=== PATIENT | male | born 1950 | race Caucasian/White ===

== ENCOUNTER 2024-09-25 13:17 | Emergency (ER) | payer SELFPAY ==
--- NOTE | 2024-09-25 14:17 | ED.GENMED ---
Addendum entered and electronically signed by Angelo Dunlap MD 09/26/24 09:57:
Addendum: Patient at 1320 on 09/25/2024. Code called at that time
Original Note:
History of Present Illness
General
Chief Complaint: CODE
Source: ambulance crew
Exam Limitations: none
Time Seen by Provider: 09/25/24 13:28
History of Present Illness
History of Present Illness:
74-year-old male came in as a cardiac arrest. Apparently [place] walking around the [place] collapsed witnessed. CPR was started by bystanders. Initially had 2 shocks delivered then went into asystole and continuous PEA for an hour. 7 rounds of
epinephrine. Intubated by the medics. On arrival pulseless PEA equal breath sounds with bagging. No other history available
Past History
Past History
ED Past Medical History: Other (Unknown)
ED Past Surgical History: Other (Unknown)
Phy Exam
Physical Exam
Physical Exam:
CODE EXAM:
VITAL SIGNS: No palpable blood pressure, no pulses, no respiration.
GENERAL EXAM: Mottled
EYES: Pupils fixed
ENT: Patient intubated
NECK: No venous distention
RESPIRATORY: Equal breath sounds
CARDIAC: Absent heart sounds
VASCULAR: Absent pulses
ABDOMEN: Soft no masses. Obese
GUAIAC: Not done
MUSCULOSKELETAL: Unable to evaluate strength
EXTREMITIES: No edema or contractures
SKIN: No rash
PSYCH: Mood, affect unable to evaluate
MDM/Problems Addressed
Differential Diagnosis Includes:
Patient with 1 hour of advanced life support 7 rounds of epinephrine. No neurologic exam. Idioventricular rhythm. No pulse palpable. There was a trace Doppler for seconds after the previous epi. However this quickly digressed and no pulse.
Code was called. Attempted to contact family.
*Complex Care Nurse Interpretation
Rate: bradycardiac
Interpretation: abnormal
Heart Rate: 30
Rhythm: other (Idioventricular)
*Critical Care Note
Total Time (30-74mins, 75-104mins- exclusive of procedures): 15
Update Note
Update Note:
Family contacted including brother who is a physician and daughter. Daughter is coming in to see the patient. Cleared by the verify rep. Tube removed.
ED Attending Note
-
Portions of this chart may have been created with voice recognition software.� Occasional wrong word or��sound alike� substitutions may have occurred due to the inherent limitations of voice recognition software.
Discharge Plan
Departure
Patient Disposition:
Date of Disposition: 09/25/24
Time of Disposition: 14:20
Discharge Problem:
Cardiopulmonary arrest
Referrals:
UNKNOWN,NO INTERVIEW [Family Provider] -
Interventions
Interventions:
*Risk Screen - Suicide Last Done: 09/25/24 13:18
*General Assessment Last Done: 09/25/24 13:18
*Neglect/Abuse Screening Last Done: 09/25/24 13:18
*ED COVID-19 Vaccine History Last Done: 09/25/24 13:18
Discharge Date and Time
Print Language: AUSTR[place]
== END 2024-09-25 13:20 | disposition expired ==
LOC: EMR 13:17
PROVIDERS: EMERGENCY PHYSICIAN Emergency Medicine
DX: I46.9 Cardiac arrest, cause unspecified (principal)
CPT/HCPCS: 99285